=== PATIENT | male | born 1945 | race Two or more races ===

== ENCOUNTER 2019-02-19 05:30 | Day surgery (SDC) | payer OTHER ==
[~2019-02-19 05:30] MED LIST: BISOPROLOL FUMA10 MG PO; METFORMIN HCL500 MG PO
[2019-02-19] MEDS ORDERED: PERCOCET 5-3251 EACH PO (10:01)
[2019-02-19] MEDS ORDERED: RECTICARE30 GM TOP (10:03)
[2019-02-19] MEDS ORDERED: KETO10TA2 PO (10:03)
== END 2019-02-19 13:44 | disposition home or self-care (01) ==
LOC: CIR.AMB 05:30
DX: K64.8 Other hemorrhoids (principal); K64.4 Residual hemorrhoidal skin tags